=== PATIENT | male | born 1940 | race Two or more races ===

== ENCOUNTER 2020-09-08 12:33 | Emergency (ER) | payer OTHER ==
[~2020-09-08] VITALS: Ht 172.7 cm; Wt 74.4 kg
[2020-09-08] MEDS ORDERED: XARELTO20 M1 PO (12:58)
[2020-09-08] MEDS ORDERED: NORFLEX100MG PO (16:17)
== END 2020-09-08 16:44 | disposition home or self-care (01) ==
LOC: ER 12:33
DX: S30.0XXA Contusion of lower back and pelvis, initial encounter (principal); M54.6 Pain in thoracic spine; W18.39XA Other fall on same level, initial encounter; Y93.89 Activity, other specified; Y92.018 Other place in single-family (private) house as the place of occurrence of the external cause; Y99.8 Other external cause status

== ENCOUNTER 2020-10-15 10:12 | Outpatient (CLI) | payer OTHER ==
[~2020-10-15 10:12] MED LIST: NORFLEX100MG PO; XARELTO20 M1 PO
== END 2020-10-15 10:20 | disposition home or self-care (01) ==
LOC: RX STUDY 10:12
PROVIDERS: ATTEND Internal Medicine Gastroenterology
DX: K22.2 Esophageal obstruction (principal)

== ENCOUNTER 2021-07-31 13:46 | Outpatient (CLI) | payer OTHER | END 2021-07-31 13:56 | disposition home or self-care (01) | LOC: RAD 13:46 | PROVIDERS: ATTEND Internal Medicine Cardiovascular Disease | DX: J43.8 Other emphysema (principal) ==

== ENCOUNTER 2021-08-10 07:25 | Outpatient (CLI) | payer OTHER | END 2021-08-10 07:26 | disposition home or self-care (01) | LOC: NUCLEAR 07:25 | PROVIDERS: ATTEND Internal Medicine Cardiovascular Disease | DX: I20.9 Angina pectoris, unspecified (principal) | CPT/HCPCS: 78452; 93017; A9500; J0153 ==

== ENCOUNTER 2021-11-02 10:35 | Outpatient (CLI) | payer OTHER | END 2021-11-02 10:50 | disposition home or self-care (01) | LOC: PPH VACUNA 10:35 | PROVIDERS: ATTEND Emergency Medicine Pediatric Emergency Medicine | DX: Z23 Encounter for immunization (principal) ==

== ENCOUNTER 2022-03-18 10:31 | Outpatient (CLI) | payer OTHER | END 2022-03-18 10:41 | disposition home or self-care (01) | LOC: PPH VACUNA 10:31 | PROVIDERS: ATTEND Emergency Medicine Pediatric Emergency Medicine | DX: Z23 Encounter for immunization (principal) ==

== ENCOUNTER → 2022-03-18 | Outpatient (CLI) | payer OTHER | END | disposition home or self-care (01) | LOC: PPH VACUNA 10:25 | PROVIDERS: ATTEND Emergency Medicine Pediatric Emergency Medicine | DX: Z23 Encounter for immunization (principal) ==

== ENCOUNTER 2022-06-23 10:06 | Outpatient (CLI) | payer OTHER | END 2022-06-23 10:10 | disposition home or self-care (01) | LOC: NUCLEAR 10:06 | DX: I65.23 Occlusion and stenosis of bilateral carotid arteries (principal) ==

== ENCOUNTER 2024-01-16 08:01 | Outpatient (CLI) | payer OTHER | END 2024-01-16 08:11 | disposition home or self-care (01) | LOC: SONOGRAMA 08:01 | PROVIDERS: ATTEND Family Medicine | DX: R31.0 Gross hematuria (principal) ==